=== PATIENT | female | born 1975 | race Caucasian/White ===

== ENCOUNTER 2019-10-23 10:48 | Day surgery (SDC) | payer OTHER, SELFPAY ==
[2019-10-18 15:20] VITALS: BMI 40.2
[2019-10-23] VITALS (7 sets, daily range): BP systolic 104–129; BP diastolic 50–81; PULSE 51–75; RESP 12–21; TEMP 36.3–37.1; O2SAT 95–100; BMI 40.5
[2019-10-23] MEDS: LACTATED RINGERS 1,000 ML 42 ML IV (12:00)
--- NOTE | 2019-10-23 13:00 | PM.PREOP ---
Pre-operative Note Interval Note History & Physical reviewed/Exam performed by Physician: Yes Changes to H&P: No
--- NOTE | 2019-10-23 13:31 | PM.OP.1 ---
Operative Date/Time/Diagnoses Date of procedure: 10/23/19 Time of procedure: 13:31 Pre-op diagnosis: Retained IUD Post-op diagnosis: same Procedure & Clinicians Procedure: Removal and replacement of Mirena IUD Same procedure as scheduled: Yes Indications: Mirena IUD that was unable to be removed in the office due to lack of string visibility and unsuccessful attempts x2 to remove in the office. Patient is requesting replacement of IUD. Surgeon: Camila Morfin Click Yes if Unassisted: Yes Anesthesia Type: General Operative Notes Findings: IUD successfully removed with polyp forceps. Uterus sounded to 9 cm. New Mirena IUD placed without difficulties strings cut to 4 cm Closure Type: not applicable Specimen(s): none sent Estimated Blood Loss (mL): 1 Blood products transfused: none Procedure in detail: Patient was brought to the operating room where she underwent general anesthesia. She was placed in low Yellofin stirrups and prepped and draped in usual sterile fashion. A check system was reviewed with the staff in the room. Antibiotics were not indicated. Warming was with blankets. Pulsatile stockings were in place and functional. A single-tooth tenaculum was placed on the anterior lip of the cervix and polyp forceps placed through the cervix into the uterus and the IUD successfully removed. The uterus was sounded to 8 cm. The new Mirena IUD was placed without difficulty and strings cut to 4 cm. Patient went to recovery room in good condition. Counts of instruments and sponges were correct. Complications: none Post-operative Condition: stable Disposition: same day surgery Plan for aftercare: Follow-up as needed.
--- NOTE | 2019-10-23 13:32 | SUR.OPER ---
Lithotomy on padded OR bed. [place] Pad Positioner under torso. Head on pillow, arms padded and tucked at sides. Legs secured in padded yellow fins stirrups.
--- NOTE | 2019-10-23 14:00 | SUR.PHASEI ---
awake/drowsy, taking ice, report given; c/o small bump on right lower lip, appears to be a small blister-like area.
== END 2019-10-23 14:30 | disposition home or self-care (01) ==
PROVIDERS: PCP Family Medicine; Visit Provider Specialist
PROC: (CPT 58301; 2019-10-23 12:00)
DX: T83.32XA Displacement of intrauterine contraceptive device, initial encounter (principal); Z30.430 Encounter for insertion of intrauterine contraceptive device; Z30.432 Encounter for removal of intrauterine contraceptive device
CPT/HCPCS: 58301; 58300; 93005; 93010; C1771; J7298

== ENCOUNTER → 2021-10-30 09:08 | Outpatient (CLI) | payer OTHER, SELFPAY ==
[2021-10-30 19:20] LABS: Cholesterol 173 mg/dL (140-199); HDL Cholesterol 56 mg/dL (40-60); LDL Cholesterol Calculated 97 mg/dL (<100); Triglycerides 100 mg/dL (35-150)
[2021-10-30 19:37] LABS: Prolactin 34.8 ng/mL (3.0-18.6)
[2021-10-30 19:40] LABS: Free T4, Direct Thyroxine 1.24 ng/dL (0.78-2.19)
[2021-10-30 19:53] LABS: Thyroid Stimulating Hormone 2.81 uIU/mL (0.47-4.68)
== END ==
PROVIDERS: PCP Family Medicine; Referring Provider Obstetrics & Gynecology; Visit Provider Obstetrics & Gynecology
DX: Z13.9 Encounter for screening, unspecified (principal); Z83.49 Family history of other endocrine, nutritional and metabolic diseases; R79.89 Other specified abnormal findings of blood chemistry
CPT/HCPCS: 80061; 84146; 84439; 84443